=== PATIENT | female | born 1975 | race Hispanic/Latino ===

== ENCOUNTER 2023-01-13 23:21 | Emergency (ER) | payer SELFPAY ==
[~2023-01-13] VITALS: Ht 157.5 cm; Wt 72.6 kg
[2023-01-13] MEDS ORDERED: SODIUM CHLORIDE 0.9% 1000ML 1,000 ML IV STA (23:30)
[2023-01-13] MEDS ORDERED: KETOROLAC TROMETHAMINE 30 MG/ML VIAL IV STA (23:31)
[2023-01-13 23:47] LABS: BASOPHILS # (AUTO) 0.1 (0.0-0.1); BASOPHILS % 0.7 % (0.0-1.0); EOSINOPHILS # (AUTO) 0.1 (0.0-0.4); EOSINOPHILS % 1.3 % (0.0-6.0); HEMOGLOBIN 14.9 g/dL (12.0-16.0); LYMPHOCYTES # (AUTO) 2.2 (1.0-3.2); LYMPHOCYTES % 28.3 % (18.0-39.1); MEAN CORPUSCULAR HEMOGLOBIN 31.9 pg (28-32); MEAN CORPUSCULAR HGB CONC 34.7 g/dL (31-35); MEAN CORPUSCULAR VOLUME 92.1 fL (81-99); MONOCYTES # (AUTO) 0.6 (0.2-0.8); MONOCYTES % 7.4 % (4.4-11.3); NEUTROPHILS # (AUTO) 4.8 (2.1-6.9); NEUTROPHILS % 62.2 % (38.7-80.0); PLATELET COUNT 315 x10e3/uL (140-360); RED BLOOD COUNT 4.67 x10e6/uL (3.6-5.1)
[2023-01-13 23:49] LABS: CLARITY,URINE SL CLOUDY (CLEAR); COLOR,URINE ORANGE (YELLOW); KETONES,URINE 2+ (NEGATIVE); LEUKOCYTE ESTERASE ,URINE LARGE (NEGATIVE); NITRITE,URINE POSITIVE (NEGATIVE); PROTEIN,URINE DIPSTICK 2+ (NEGATIVE)
[2023-01-13 23:54] LABS: AMORPHOUS SEDIMENT,URINE FEW (FEW); BACTERIA,URINE FEW /HPF; EPITHELIAL CELLS,URINE MODERATE /LPF; RBC,URINE 0-5 /HPF (0-5)
[2023-01-14 00:07] LABS: ALBUMIN 4.5 g/dL (3.5-5.0); ANION GAP 14.7 mmol/L (8-16); CALCIUM 9.5 mg/dL (8.4-10.2); CREATININE, SERUM 0.75 mg/dL (0.57-1.11); POTASSIUM 3.7 mmol/L (3.5-5.1)
[2023-01-14] MEDS ORDERED: IOPAMIDOL 370 MG/ML 100 ML INFUS..BTL INJ ONE (00:23)
[2023-01-14] MEDS ORDERED: HYDRALAZINE HCL 20 MG/ML VIAL IV STA (01:01)
[2023-01-14] MEDS ORDERED: Morphine 4mg INJECTION 4 MG/ML INJ IV STA (01:01)
[2023-01-14] MEDS ORDERED: ONDANSETRON HCL INJ 2MG/ML 2ML 2 MG/ML VIAL IV STA (01:01)
[2023-01-14] MEDS ORDERED: CIPRO500 MG PO (01:46)
[2023-01-14 02:16] VITALS: BP 178/101; PULSE 70; RESP 16; TEMP 98.6; O2SAT 100
== END 2023-01-14 02:14 | disposition home or self-care (01) ==
LOC: ER 23:31
DX: R30.0 Dysuria (principal); N39.0 Urinary tract infection, site not specified; R11.2 Nausea with vomiting, unspecified; R10.30 Lower abdominal pain, unspecified; I10 Essential (primary) hypertension
CPT/HCPCS: 36415; 74177; 80053; 81001; 81025; 85025; 99284; J0360; J1885; J2270; J2405; J7030; Q9967

== ENCOUNTER 2023-01-21 21:33 | Emergency (ER) | payer SELFPAY ==
[~2023-01-21] VITALS: Ht 157.5 cm; Wt 72.6 kg
[~2023-01-21 21:33] MED LIST: CIPRO500 MG PO
[2023-01-21] MEDS ORDERED: SODIUM CHLORIDE 0.9% 1000ML 1,000 ML IV STA ×2 (21:51→21:55)
[2023-01-21] MEDS ORDERED: HYDRALAZINE HCL 20 MG/ML VIAL IV STA (21:57)
[2023-01-21 22:13] LABS: CLARITY,URINE CLOUDY (CLEAR); COLOR,URINE YELLOW (YELLOW); LEUKOCYTE ESTERASE ,URINE NEGATIVE (NEGATIVE); NITRITE,URINE NEGATIVE (NEGATIVE); PROTEIN,URINE DIPSTICK NEGATIVE (NEGATIVE)
[2023-01-21 22:14] LABS: AMPHETAMINES SCREEN,URINE NEGATIVE (NEGATIVE); BASOPHILS % 0.6 % (0.0-1.0); BENZODIAZEPINES SCREEN,URINE POSITIVE (NEGATIVE); EOSINOPHILS # (AUTO) 0.1 (0.0-0.4); EOSINOPHILS % 1.1 % (0.0-6.0); HEMATOCRIT 39.7 % (34.2-44.1); HEMOGLOBIN 13.3 g/dL (12.0-16.0); KETONES,URINE NEGATIVE (NEGATIVE); LYMPHOCYTES # (AUTO) 1.9 (1.0-3.2); LYMPHOCYTES % 26.5 % (18.0-39.1); MEAN CORPUSCULAR HEMOGLOBIN 31.1 pg (28-32); MEAN CORPUSCULAR HGB CONC 33.5 g/dL (31-35); MONOCYTES # (AUTO) 0.4 (0.2-0.8); MONOCYTES % 6.1 % (4.4-11.3); NEUTROPHILS # (AUTO) 4.6 (2.1-6.9); NEUTROPHILS % 65.3 % (38.7-80.0); PHENCYCLIDINE SCREEN,URINE NEGATIVE (NEGATIVE); PLATELET COUNT 277 x10e3/uL (140-360); RED BLOOD COUNT 4.27 x10e6/uL (3.6-5.1); URINE UROBILINOGEN 0.2 mg/dL (0.2 - 1)
[2023-01-21 22:20] LABS: ALANINE AMINOTRANSFERASE 84 IU/L (0-55); ALBUMIN/GLOBULIN RATIO 1.1 (0.8-2.0); ALKALINE PHOSPHATASE 63 IU/L (40-150); ANION GAP 13.9 mmol/L (8-16); BLOOD UREA NITROGEN 13 mg/dL (7-26); BUN/CREATININE RATIO 18 (6-25); CALCIUM 9.1 mg/dL (8.4-10.2); CARBON DIOXIDE 24 mmol/L (22-29); CHLORIDE 104 mmol/L (98-107); CREATINE KINASE 119 IU/L (29-168); CREATININE, SERUM 0.73 mg/dL (0.57-1.11); GLUCOSE 120 mg/dL (74-118); POTASSIUM 3.9 mmol/L (3.5-5.1); SODIUM 138 mmol/L (136-145)
[2023-01-21 22:25] LABS: BACTERIA,URINE FEW /HPF; EPITHELIAL CELLS,URINE MODERATE /LPF; RBC,URINE 0-5 /HPF (0-5); WBC,URINE (MAN) 0-5 /HPF (0-5)
[2023-01-21 22:26] LABS: MUCUS,URINE MANY (RARE)
[2023-01-22] VITALS: O2SAT 98
== END 2023-01-22 | disposition home or self-care (01) ==
LOC: ER 21:47
DX: R06.02 Shortness of breath (principal); H11.31 Conjunctival hemorrhage, right eye; I16.0 Hypertensive urgency; I10 Essential (primary) hypertension; F41.9 Anxiety disorder, unspecified; R94.31 Abnormal electrocardiogram [ECG] [EKG]
CPT/HCPCS: 36415; 70450; 80053; 80307; 81001; 81025; 82550; 82553; 83880; 84484; 85025; 93005; 99284; J0360; J7030